=== PATIENT | male | born 1950 | race Caucasian/White ===

== ENCOUNTER 2020-04-28 19:39 | Emergency (ER) | payer MEDICARE, SELFPAY ==
[2020-04-28 19:41] VITALS: BP 151/102; PULSE 72; RESP 16; TEMP 36.9; O2SAT 97; BMI 26.6
--- NOTE | 2020-04-28 21:01 | ED.VISSUMM ---
- ER Visit Summary Date of Service: 04/28/20 Chief Complaint: [Constipation] History of Present Illness: The patient is a 69 M [presents to the emergency department complaint of being unable to void for last 2 to 3 days. Patient feels like he needs to have a bowel movement but cannot. Since this morning also he is not been unable to void urine. He denies any abdominal pain. He denies fever. Denies rectal bleeding.] Patient denies any new medications. He denies any change in his diet. He is not had problems with constipation before. Physical Examination: [HEENT-PERRLA, EOMI. Cranial nerves II through XII grossly intact. TMs clear. Mucous membranes moist. No adenopathy. Cardiovascular-regular rate and rhythm without murmur or ectopy Lungs-clear to auscultation, chest wall stable without crepitus or subcu emphysema Abdomen-normoactive bowel sounds, soft, nontender, no rebound or rigidity, no peritoneal signs. Rectal exam-patient has large amount of hard stool within the rectal vault that was manually disimpacted. Extremities-intact ?4, normal range of motion, normal pulses, atraumatic] Test Results: [None indicated] Emergency Department Course and Treatment: [Patient had a soapsuds enema and had large bowel movement associated with it and his symptoms resolved. Patient was able to void urine without difficulty.] Treatment Plan: [Patient advised to use MiraLAX for the next 2 weeks. Patient advised to return if worsening abdominal pain, fever, vomiting, rectal bleeding, or condition should worsen anyway.] Disposition: [Discharged home in stable condition] Impression: [Constipation Rectal impaction-resolved] This note was generated with [employer] dictation software. It may contain incorrect words, spelling, and punctuation that were not noted in review of the chart prior to signing ED Disposition - Plan for ED Patient: Referrals: Mj Nelson III, MD [Primary Care Provider] -
--- NOTE | 2020-04-28 21:02 | ED.DEP ---
ED Disposition - Plan for ED Patient: Instructions: ED Constipation, ED Impaction Fecal Treated Referrals: Mj Nelson III, MD [Primary Care Provider] - 3-5 Days
[2020-04-28 21:20] VITALS: BP 126/86; PULSE 85; RESP 16; O2SAT 97
== END 2020-04-28 21:30 | disposition home or self-care (01) ==
LOC: ED 21:06
PROVIDERS: Emergency Provider Emergency Medicine; PCP Family Medicine
DX: K59.00 Constipation, unspecified (principal); I25.10 Atherosclerotic heart disease of native coronary artery without angina pectoris; I10 Essential (primary) hypertension; E11.9 Type 2 diabetes mellitus without complications; Z79.84 Long term (current) use of oral hypoglycemic drugs
CPT/HCPCS: 99284

== ENCOUNTER 2025-06-11 18:04 | Emergency (ER) | payer MEDICARE, SELFPAY ==
[2025-06-11 18:05] VITALS: BP 171/97; PULSE 63; RESP 16; TEMP 36.6; O2SAT 99; BMI 27.3
--- NOTE | 2025-06-11 18:27 | CT_ITS ---
EXAM: CT Abdomen and Pelvis With Intravenous Contrast CLINICAL INDICATION: CONSTIPATION TECHNIQUE: Axial computed tomography images of the abdomen and pelvis with intravenous contrast. This CT exam was performed using one or more of the following dose reduction techniques: automated exposure control, adjustment of the mA and/or kV according to patient size, and/or use of iterative reconstruction technique. COMPARISON: No relevant prior studies available. FINDINGS: LUNG BASES: Unremarkable. No mass. No consolidation. ABDOMEN: LIVER: Hepatomegaly with fatty infiltration. GALLBLADDER AND BILE DUCTS: Unremarkable. No calcified stones. No ductal dilation. PANCREAS: Unremarkable. No mass. No ductal dilation. SPLEEN: Unremarkable. No splenomegaly. ADRENALS: Unremarkable. No mass. KIDNEYS AND URETERS: Unremarkable. No stones within either kidney. No hydronephrosis. STOMACH AND BOWEL: Constipation with suggestion of fecal impaction of the rectum. No obstruction. No mucosal thickening. PELVIS: APPENDIX: Normal appendix. BLADDER: Unremarkable. No mass. REPRODUCTIVE: Partially visualized bilateral hydroceles. ABDOMEN and PELVIS: INTRAPERITONEAL SPACE: Unremarkable. No free air. No significant fluid collection. BONES/JOINTS: Moderate endplate degenerative changes and disc degeneration of L5-S1. No acute fracture. No dislocation. SOFT TISSUES: Unremarkable. VASCULATURE: Scattered calcified atherosclerotic disease of aorta. No abdominal aortic aneurysm. LYMPH NODES: Unremarkable. No enlarged lymph nodes. CT/Abdomen/Pelvis W IV Cont ONLY IMPRESSION: 1. Normal appendix. 2. Constipation with suggestion of fecal impaction of the rectum. 3. Hepatomegaly with fatty infiltration. 4. No obstructive uropathy. Reading Location: [id number]
--- NOTE | 2025-06-11 18:28 | EX.ED.DYSGE1 ---
HPI History of Present Illness Chief Complaint: Constipation Narrative Narrative: Chief complaint and HPI: Constipation. 74-year-old male with past medical history of thyroid disease, HTN, diabetes presents for evaluation of constipation. Patient states he had an episode of constipation in the past but that he does not frequently suffer from constipation. States he was recently traveling in which he became constipated. He states he has not had a bowel movement in 7 days. He denies any fever, chills, shortness of breath, chest pain abdominal pain, nausea, vomiting, dysuria. States he has been eating and drinking well. Review of systems: See HPI Medications: As listed on the chart Allergies: As listed on the chart PFSH: Per chart Vital signs: As listed on the chart. Reviewed. Physical exam: Gen: A&O x3, NAD Head: Normocephalic, atraumatic Eyes: No sclera icterus, conjunctiva clear ENT: Moist mucous membranes Neck: Trachea midline, No JVD CV: RRR, no murmurs, no peripheral edema Resp: Lungs CTA BL, no w/r/c GI: Abd soft, non-distended, non-tender, no r/r/g Rectal: Non-thrombosed external hemorrhoid. Normal tone and sensation. Hard stool in the rectal vault. I was able to manually disimpact a lot of of the hard stool. Brown in color. Musc: Full ROM, no deformity Skin: Warm, dry Neuro: Alert, oriented, grossly intact, sensation intact Psych: Cooperative, appropriate mood and affect PFSH PFS Home Medications ?Medication ?Instructions ?Recorded ?Last Taken ?Type amlodipine 10 mg tablet 10 mg PO DAILY 04/28/20 Unknown History atorvastatin 40 mg tablet 40 mg PO DAILY 04/28/20 Unknown History hydrochlorothiazide 12.5 mg capsule 12.5 mg PO DAILY 04/28/20 Unknown History levothyroxine 100 mcg tablet 100 mcg PO DAILY 04/28/20 Unknown History lisinopril 40 mg tablet 40 mg PO DAILY 04/28/20 Unknown History metformin 500 mg tablet 500 mg PO BID 04/28/20 Unknown History metoprolol succinate 25 mg 25 mg PO DAILY 04/28/20 Unknown History tablet,extended release 24 hr docusate sodium 50 mg capsule 50 mg PO DAILY 7 days #7 caps 06/11/25 Unknown Rx geriatric multivitamin-min tab 06/11/25 Unknown History polyethylene glycol 3350 17 17 g PO DAILY #119 grams 06/11/25 Unknown Rx gram/dose oral powder (Miralax) Allergy/AdvReac Type Severity Reaction Status Date / Time No Known Allergies Allergy Verified 06/11/25 18:06 Social History Smoking Status: Never smoker EXAM Physical Exam Const Vital Signs: 06/11/25 18:05 06/11/25 20:04 Temperature 97.9 F Temperature Source Oral Pulse Rate 63 68 Respiratory Rate 16 16 Blood Pressure 171/97 H 152/64 H Blood Pressure Mean 121 93 Pulse Ox 99 97 Oxygen Delivery Method Room Air Room Air MDM MDM MDM Narrative Medical decision making narrative: 74-year-old male with past medical history of thyroid disease, HTN, diabetes presents for evaluation of constipation. Patient has not had a bowel movement in 7 days. Patient had hard stool in the rectal vault which I was manually able to disimpact. Differential diagnosis includes is not limited to constipation, electrolyte abnormality, suspect less likely obstruction given patient has no abdominal surgeries. NS bolus ordered with basic labs and CT abdomen pelvis. CBC with leukocytosis of 12. No anemia. Platelets unremarkable. Given patient's leukocytosis will add on UA to assess for UTI. BMP unremarkable. Lactic acid unremarkable. UA negative for UTI. CT abdomen pelvis shows no acute intra-abdominal finding except for constipation. Soapsuds enema prescribed. Patient did well with enema and had bowel movement. Patient discharged home on MiraLAX and stool softeners. Recommend drinking plenty of fluids. Follow-up with PCP. No clear etiology for his leukocytosis of 20. He was updated he needs to follow-up with his PCP for his leukocytosis. He confirmed understanding of the plan. Patient will discharge home. Impression: 1. Constipation 2. Leukocytosis Lab Data Labs: Laboratory Results - last 24 hr 06/11/25 06/11/25 18:55 19:40 WBC 20.0 H RBC 4.00 L Hgb 14.1 Hct 39.0 L MCV 97.5 H MCH 35.3 H MCHC 36.2 H RDW Std Deviation 51.8 H RDW Coeff of Sarah 14.6 Plt Count 212 MPV 9.4 Immature Gran % (Auto) 0.600 Neut % (Auto) 83.3 H Lymph % (Auto) 8.9 L [place] % (Auto) 4.5 Eos % (Auto) 2.2 Baso % (Auto) 0.5 Absolute Neuts (auto) 16.7 H Absolute Lymphs (auto) 1.78 Nucleated RBC % 0 Sodium 139 Potassium 3.6 Chloride 101 Carbon Dioxide 26.1 Anion Gap 12 BUN 17 Creatinine 0.81 Estim Creat Clear Calc 72.54 Est GFR (MDRD) Non-Af 91 BUN/Creatinine Ratio 21.1 H Glucose 129 H Lactic Acid 1.0 Calcium 9.8 Urine Color Straw Urine Clarity Clear Urine pH 6.5 Ur Specific [place] 1.015 Urine Protein 15 H Urine Glucose (UA) Normal Urine Ketones Negative Urine Occult Blood Negative Urine Nitrite Negative Urine Bilirubin Negative Urine Urobilinogen Normal Ur Leukocyte Esterase Negative Urine RBC 0-5 SEEN Urine WBC 0-5 SEEN Ur Squamous Epith Cells 0-5 SEEN Urine Bacteria 0 SEEN Urine Mucus 0 SEEN Radiography Diagnostic Testing: Clinical Impression(s) from Imaging Studies Abdomen/Pelvis CT 06/11/25 18:27 IMPRESSION: 1. Normal appendix. 2. Constipation with suggestion of fecal impaction of the rectum. 3. Hepatomegaly with fatty infiltration. 4. No obstructive uropathy. Reading Location: [facility] Discharge Plan Triage Chief Complaint: Constipation ED Provider: Felice Bermudez Dx/Rx/DC Orders Clinical Impression: Constipation Instructions: Treating Constipation, ED Constipation (Adult) Prescriptions: New polyethylene glycol 3350 [Miralax] 17 gram/dose powder 17 g PO DAILY Qty: 119 0RF docusate sodium 50 mg capsule 50 mg PO DAILY 7 Days Qty: 7 0RF No Action atorvastatin 40 mg tablet 40 mg PO DAILY metformin 500 MG tablet 500 mg PO BID levothyroxine 100 MCG tablet 100 mcg PO DAILY amlodipine 10 MG tablet 10 mg PO DAILY hydrochlorothiazide 12.5 mg capsule 12.5 mg PO DAILY metoprolol succinate 25 MG tablet extended release 24 hr 25 mg PO DAILY lisinopril 40 MG tablet 40 mg PO DAILY geriatric multivitamin-min Tablet Primary Care Provider: Tam Henry Referrals: Tam Henry MD [Primary Care Provider] - 3-5 Days Activity Restrictions/Additional Instructions: Prescription sent for daily MiraLAX and stool softener. Follow-up with primary care physician. Drink plenty of fluids. Return back to the ED if symptoms change or worsen. Your white count was elevated here in the emergency department. I do not have a reason for the elevation in your white count. You need to follow-up with your primary care physician for this elevation. Print Language: Kazakh Disposition Disposition: Home, Self Care
[2025-06-11] MEDS: 0.9% Normal Saline (1000mL) 1,000 ML 999 ML IV (18:55)
[2025-06-11 19:06] LABS: Hematocrit 39.0 % (40-54); Hemoglobin 14.1 g/dL (13.0-16.5); Immature Granulocytes Count 0.110 X10^3/uL (0.0-0.0); Mean Corp Hgb Conc 36.2 g/dL (32-36); Mean Corpuscular Volume 97.5 fL (80-94); Mean Platelet Vol. 9.4 fl (6.2-12.0); NRBC Flagged by Analyzer 0 % (0-5); Platelet Count 212 K/mm3 (150-450); RBC Distribution Width CV 14.6 % (11.6-14.6); RBC Distribution Width SD 51.8 fl (35.1-43.9); Red Blood Count 4.00 M/mm3 (4.6-6.2); White Blood Count 20.0 K/mm3 (4.4-11.0)
[2025-06-11 19:39] LABS: Anion Gap 12 (5-15); BUN 17 mg/dL (4-19); BUN/Creat Ratio 21.1 RATIO (10-20); Calcium,Total 9.8 mg/dL (7.6-11.0); Carbon Dioxide 26.1 mmol/L (21.0-32.0); Chloride 101 mmol/L (98-108); Estimated Creatinine Clearance 72.54 ml/min (50-250); Glucose 129 mg/dL (70-99); Potassium 3.6 mmol/L (3.3-5.1)
[2025-06-11 19:47] LABS: Mucous, Urine 0 SEEN /hpf (<or=2+)
[2025-06-11 19:55] LABS: Color, Urine Straw (Yellow); Glucose, Dipstick Normal (Normal); Ketone-Dipstick Negative (Negative); Leukocyte Esterase-Dipstick Negative /ul (Negative); Nitrite-Dipstick Negative (Negative); Occult Blood-Urine Negative /ul (Negative); Protein-Dipstick 15 mg/dl (Negative); Specific Gravity, Urine 1.015 (1.002-1.030); Urine Bilirubin Dipstick Negative (Negative)
[2025-06-11 20:04] VITALS: BP 152/64; PULSE 68; RESP 16; O2SAT 97
[2025-06-11 20:37] LABS: Red Blood Cells-Urine 0-5 SEEN /hpf (0-5); Squamous Epithelial Cells - UA 0-5 SEEN /hpf (0-5)
[2025-06-11 22:00] VITALS: BP 133/68
[2025-06-11 22:40] VITALS: BP 133/68; PULSE 61; RESP 16; TEMP 36.6; O2SAT 97
== END 2025-06-11 22:44 | disposition home or self-care (01) ==
PROVIDERS: Emergency Provider Surgery; PCP Family Medicine; Visit Provider Surgery
DX: K59.00 Constipation, unspecified (principal); I10 Essential (primary) hypertension; D72.829 Elevated white blood cell count, unspecified; Z79.899 Other long term (current) drug therapy; Z79.84 Long term (current) use of oral hypoglycemic drugs
CPT/HCPCS: 74177; 80048; 81001; 83605; 85025; 96360; 96361; 99285; Q9967; A4216